=== PATIENT | female | born 1985 | race Caucasian/White ===

== ENCOUNTER 2018-07-09 14:26 | Emergency (ER) | payer OTHER ==
[~2018-07-09] VITALS: Ht 152.4 cm; Wt 604.6 kg
== END 2018-07-09 22:03 | disposition home or self-care (01) ==
LOC: ER 14:26
DX: K29.70 Gastritis, unspecified, without bleeding (principal)

== ENCOUNTER 2019-07-16 00:01 | Emergency (ER) | payer OTHER ==
[~2019-07-16] VITALS: Ht 152.4 cm; Wt 61.2 kg
[2019-07-16] MEDS ORDERED: GAVISCON (00:47)
[2019-07-16] MEDS ORDERED: PEPCID (02:21)
[2019-07-16] MEDS ORDERED: INTESTINEX680 M1 PO (04:23)
== END 2019-07-16 04:33 | disposition home or self-care (01) ==
LOC: ER 00:01
DX: K52.9 Noninfective gastroenteritis and colitis, unspecified (principal); E86.0 Dehydration